=== PATIENT | female | born 1945 | race Caucasian/White ===

== ENCOUNTER 2016-11-13 05:44 | Inpatient (IN) | payer MEDICARE, OTHER ==
[2016-11-01 13:55] LABS: WBC (NOT ORDERED) (RFLEX) 0 (0-5)
[2016-11-01 14:42] LABS: BASOPHILS 0.2 %; BASOPHILS ABSOLUTE 0.01 10/3/uL (0.0-0.16); EOSINOPHILS 2.5 %; EOSINOPHILS ABSOLUTE 0.11 10/3/uL (0.0-0.53); HEMATOCRIT 33.2 % (36.0-48.0); LYMPHOCYTES 21.4 %; LYMPHOCYTES ABSOLUTE 0.93 10/3/uL (0.67-4.30); MEAN CORPUS HGB CONC 33.1 g/dL (32.0-36.0); MEAN CORPUSCULAR HEMOGLOB 31.3 pg (26.0-34.0); MEAN CORPUSCULAR VOLUME 94.3 fL (80-100); MEAN PLATELET VOLUME 8.7 fL (9.2-13.0); MONOCYTES 6.2 %; MONOCYTES ABSOLUTE 0.27 10/3/uL (0.21-1.20); NEUTROPHILS 69.7 %; NEUTROPHILS ABSOLUTE 3.03 10/3/uL (2.02-8.40); PLATELET COUNT 345 10/3/uL (150-400); RBC DISTRIBUTION WIDTH 13.4 % (12.0-16.0); RED CELL COUNT 3.52 10/6/uL (4.0-5.6); WHITE BLOOD CELLS 4.4 10/3/uL (4.5-10.5)
[2016-11-01 14:43] LABS: MANUAL DIFF NO %
[2016-11-01 14:45] LABS: PARTIAL THROMBO TIME 24.4 SEC (22.5-37.2); PROTIME (NOT ORD) 13.3 SEC (12.0-14.5)
[2016-11-01 14:49] LABS: A/G RATIO 1.2 (0.7-1.9); ALBUMIN 3.5 G/DL (3.5-5.0); BUN (BLOOD UREA NITROGEN) 19 MG/DL (6-23); CALCIUM, SERUM 8.9 MG/DL (8.5-10.4); CHLORIDE, SERUM 108 MMOL/L (96-112); CO2 (CARBON DIOXIDE) 25 MMOL/L (24-34); GFR AFRICAN AMERICAN 65 ML/MIN (>=60); GFR NON AFRICAN AMERICAN 56 ML/MIN (>=60); GLOBULIN 2.9 G/DL (2.5-4.1); GLUCOSE, SERUM 128 MG/DL (60-99); POTASSIUM, SERUM 3.7 MMOL/L (3.5-5.3); SGOT(AST) 11 U/L (5-40); SGPT(ALT) 12 U/L (5-65); SODIUM, SERUM 142 MMOL/L (135-148); TOTAL BILIRUBIN 0.8 MG/DL (0-1.2); TOTAL PROTEIN 6.4 G/DL (6.0-8.5)
[2016-11-01 14:50] LABS: ALKALINE PHOSPHATASE 133 U/L (45-117)
[2016-11-01 17:39] LABS: ASCORBIC ACID (UR NOT ORDER) NEG (NEG); BILIRUBIN, URINE NEGATIVE (NEG); KETONE, URINE NEGATIVE (NEG); LEUKOCYTE ESTERASE(NOT OR NEG (NEG)
[~2016-11-13] VITALS: Ht 157.5 cm; Wt 87.1 kg
--- NOTE | ~2016-11-13 | OP ---
Record Of Operation [facility] [address] [place]. [address] NAME: HENRIK GALEAS : 41 STATUS : ADM IN PAT#: [id number] AGE: 70 ADM/REG DATE : 11/13/16 MR#: [id number] REPORT SERV DATE: 11/14/16 DICTATED BY: JOSELYN SANCHEZ DATE: 11/13/16 REPORT STATUS : Draft TRANSCRIBED BY: MODL DATE: 11/13/16 DATE OF PROCEDURE: 11/13/2016 PREOPERATIVE DIAGNOSIS: Right hip arthritis. POSTOPERATIVE DIAGNOSIS: Right hip arthritis. PROCEDURE PERFORMED: Right total hip arthroplasty. GENERAL MANAGER [employer]: Damien Clemens. ANESTHESIA: General with local infusion. PROCEDURE IN DETAIL: The patient is clearly identified and after obtaining informed consent is brought to the operating room at [facility] where here the patient is induced under general anesthesia and subsequently placed in the left lateral decubitus position. This concluded, the thigh and flank are prepped and draped in the usual manner. A time-out procedure successfully performed and after registering the knee and marking the anatomy through an approximately 4.5 incision, the skin is divided. The fascial planes are divided. The lateral fascia then is divided. Hemostasis is obtained with electrocautery and a Charnley retractor is applied. The piriformis is identified, tagged, divided, and retracted over the sciatic nerve felt deep in the wound. At which point, the mini approach to the hip is formed with dividing the capsule in a mini approach with a cuff of tissues remaining at the femoral side to accomplish repair at the conclusion of the case. Dislocating the hip, end-stage arthritic changes are noted. The tissue surrounding the femoral neck are protected with the Hohmann retractor and the femoral neck cut is made according to preoperative templating. This concluded, the femoral head is removed. The acetabulum is exposed. The labral and fluvial tissues are removed and reaming is performed. Subsequently trialing with the appropriate trial, the permanent acetabular components placed with the [place] Sector. At which point, the acetabular trial component is then placed. The proximal femur is then addressed. The structures posteromedial to the greater trochanter are removed and this concluded the franklinie-briseidater canal finder lateralizer and reaming is performed. This concluded, broaching is performed and with excellent fit-fill and stability for the implant trialing is performed finding excellent leg length, stability, no impingement, good kickback, no push-pull, and the lesser trochanter palpably at the appropriate distance from the ischium when compared to preoperative templating. The trials were felt to be appropriate. These are all then removed and the permanent implants are then carefully applied uneventfully. Copious irrigation is then performed with same stability and findings noted after insertion. At which point, the joint then is carefully closed in layers including capsule, piriformis, lateral fascia, deep tissues, and skin. Aquacel dressing is applied and the patient is then allowed to awaken, is placed supine and is returned to the recovery room in stable condition having tolerated the procedure well. ESTIMATED BLOOD LOSS: 150. FLUIDS: 1400. Record Of Operation [address] [address] NAME: HENRIK GALEAS : 41 STATUS : ADM IN [facility]#: [id number] AGE: 70 ADM/REG DATE : 11/13/16 MR#: [id number] REPORT SERV DATE: 11/14/16 DICTATED BY: JOSELYN SANCHEZ DATE: 11/13/16 REPORT STATUS : Draft TRANSCRIBED BY: JESSICA DATE: 11/13/16 TOURNIQUET TIME: None. PATHOLOGY: Sent specimen. MICROBIOLOGY: None. COMPLICATIONS: None. SPONGE AND NEEDLE COUNTS: Reportedly correct. ANTIBIOTICS: Administered appropriately preoperatively and ordered to be discontinued within 23 hours. IMPLANTS: DePuy hip system, femur [place], size 6 standard +1.5/36 metal head. Acetabulum, [place] sector size 54 with a +4 neutral liner and no screws. PHYLICIA/JESSICA Joselyn Sanchez M.D. / [id number] CC: Sandy Jimenez M.D.
[~2016-11-13 05:44] MED LIST: ADVIL PO; AMARYL4 PO; EYE VITAMINS PO; GLUCPH PO; HYZAAR 100/25 T1 TAB PO; KLOR-CON M2020 MEQ PO; LEVOTHYROXIN112 MCG PO; MICRO-K10 MEQ PO; ZOL100 PO
[2016-11-14 05:42] LABS: HEMOGLOBIN 8.4 g/dL (12.0-16.0)
[2016-11-14 05:48] LABS: INTERNATIONAL NORMAL RATI 1.1 UNITS (-)
[2016-11-14 05:53] LABS: BUN (BLOOD UREA NITROGEN) 17 MG/DL (6-23); CHLORIDE, SERUM 102 MMOL/L (96-112); CO2 (CARBON DIOXIDE) 24 MMOL/L (24-34); CREATININE 1.07 MG/DL (0.55-1.02); GFR AFRICAN AMERICAN 60 ML/MIN (>=60); GFR NON AFRICAN AMERICAN 52 ML/MIN (>=60); SODIUM, SERUM 136 MMOL/L (135-148)
[2016-11-14 05:54] LABS: CALCIUM, SERUM 8.2 MG/DL (8.5-10.4); GLUCOSE, SERUM 130 MG/DL (60-99)
[2016-11-15 05:15] LABS: HEMATOCRIT 24.2 % (36.0-48.0); HEMOGLOBIN 8.2 g/dL (12.0-16.0)
[2016-11-15 05:22] LABS: INTERNATIONAL NORMAL RATI 1.3 UNITS (-); PROTIME (NOT ORD) 16.5 SEC (12.0-14.5)
== END 2016-11-15 22:39 | DRG 470 ==
LOC: ENRESERVDT → ENRESERV → ENRESERVTM → SDC/OF 05:44 → 3SO 05:44 → PACU 11:13 → 3SO 12:23
PROVIDERS: Orthopaedic Surgery
PROC: 0SR902Z Replacement of Right Hip Joint with Metal on Polyethylene Synthetic Substitute, Open Approach (ICD-10-PCS; principal; 2016-11-13 08:30)
DX: M16.11 Unilateral primary osteoarthritis, right hip (principal); E11.9 Type 2 diabetes mellitus without complications; I10 Essential (primary) hypertension; D62 Acute posthemorrhagic anemia; K21.9 Gastro-esophageal reflux disease without esophagitis; E03.9 Hypothyroidism, unspecified; F32.9 Major depressive disorder, single episode, unspecified; Z85.42 Personal history of malignant neoplasm of other parts of uterus; Z90.710 Acquired absence of both cervix and uterus; Z88.5 Allergy status to narcotic agent; Z79.84 Long term (current) use of oral hypoglycemic drugs; Z79.1 Long term (current) use of non-steroidal anti-inflammatories (NSAID); Z79.899 Other long term (current) drug therapy
CPT/HCPCS: 36415; 71020; 72170; 80048; 80053; 81001; 82962; 85014; 85018; 85025; 85610; 85730; 86850; 86900; 86901; 87641; 88304; 88311; 93005; 97110-GP; 97116-GP; 97161-GP; 97165-GO; 97535-GO; A9270-GY; C1776; G8978-CL-GP; G8979-CJ-GP; G8987-CK-GO; G8988-CJ-GO; J0690; J1885; J2250; J2270; J2405; J2710; J2795; J3010